=== PATIENT | male | born 1970 | race Hispanic/Latino ===

== ENCOUNTER 2021-03-19 16:53 | Inpatient (IN) | payer SELFPAY ==
--- NOTE | 2021-03-19 18:38 | RAD REPORT ---
EXAM DESCRIPTION: US - Scrotum Testicles - 03/19/2021 6:17 pm CLINICAL HISTORY: Scrotal swelling COMPARISON: None FINDINGS: Right testicle measures 4.2 x 3 x 3 centimeters. . Echotexture is homogeneous. Normal bloo d flow Left testicle measures 3.8 x 3 x 3 centimeters. Echotexture is homogeneous. Normal blood flow Mildly increased blood flow left epididymis Marked scrotal skin thickening IMPRESSION: Marked scrotal skin thickening may indicate cellulitis and should be correlated clinical ly. No abscess seen Mildly increased blood flow left epididymis may indicate mild epididymitis
[2021-03-19 19:26] LABS: Urine Blood Negative (Negative); Urine Glucose Negative (Negative); Urine Protein Negative (Negative); Urine pH 8.5 (5.0-7.0)
[2021-03-19] MEDS ORDERED: ACETAMINOPHEN 325 MG TABLET ONE (19:50)
--- NOTE | 2021-03-19 20:25 | RAD REPORT ---
EXAM DESCRIPTION: USExtrem Venous W Compress Bil03/19/2021 8:06 pm CLINICAL HISTORY: Leg swelling COMPARISON: none FINDINGS: The common femoral, superficial femoral, popliteal and posterior tibial veins bilaterally are compressible and demonstrate augmentation. Doppler demonstrates good flow. IMPRESSION: No evidence of deep venous thrombosis involving either lower extremity.
--- NOTE | 2021-03-19 20:51 | RAD REPORT ---
EXAM DESCRIPTION: Armani Single View03/19/2021 8:04 pm CLINICAL HISTORY: Swelling COMPARISON: none FINDINGS: Upper lobe vessels are prominent indicative of pulmonary venous hypertension. The lungs appear clear of acute infiltrate. The heart is upper limits normal size
[2021-03-19] MEDS ORDERED: CLINDAMYCIN 900MG/D5W 900 MG/50 ML IVPB IV ONE (21:04)
[2021-03-19 21:07] LABS: Hematocrit 24.9 % (39.6-49.0); Lymphocytes % 24.5 % (15.3-44.8); MPV 7.3 fL (7.6-11.3); RBC Red Blood Cell Count 3.47 M/uL (4.33-5.43)
[2021-03-19 21:08] LABS: Protime INR 1.47
[2021-03-19 21:27] LABS: ALT/SGPT 28 U/L (12-78); AST/SGOT 106 U/L (15-37); Albumin 2.4 g/dL (3.4-5.0); Alkaline Phosphatase 318 U/L (45-117); BUN Blood Urea Nitrogen 4 mg/dL (7-18); Bicarbonate 24 mmol/L (21-32); Bilirubin Direct 1.5 mg/dL (0-0.2); Bilirubin Total 2.2 mg/dL (0.2-1.0); Creatine Phosphokinase 114 U/L (39-308); Glucose Level 101 mg/dL (74-106); Magnesium 1.5 mg/dL (1.8-2.4); NT PRO-BNP 189 pg/mL (<125); Potassium 3.4 mmol/L (3.5-5.1); Protein, Total 7.9 g/dL (6.4-8.2); Sodium Level 144 mmol/L (136-145)
[2021-03-19 21:42] LABS: SARS-COV-2 RT PCR NEGATIVE (NEGATIVE)
[2021-03-19 21:51] LABS: Blood Morphology Comment NOTED (NOT SEEN); Hypochromasia 1+; Platelet Estimate DECR; Polychromasia SLIGHT; White Blood Cell Scan OK (OK)
[2021-03-19] MEDS ORDERED: NA CHLORIDE 0.9% 500 ML ONE (22:12)
--- NOTE | 2021-03-20 00:20 | EDPHYS ---
Physician Documentation [facility] Name: Caleb Roberts Age: 50 yrs Sex: Male : 1970 Arrival Date: 03/19/2021 Time: 16:56 Bed 17 Private MD: ED Physician Bennie Brewster HPI: 03/19 19:20 This 50 yrs old Male presents to ER via Ambulatory with complaints of mh7 Testicular Swelling. 19:20 The patient presents with swelling, that is moderate, of the scrotum. Onset: The mh7 symptoms/episode began/occurred 1 week(s) ago. Modifying factors: The symptoms are alleviated by nothing, the symptoms are aggravated by movement. Associated signs and symptoms: Pertinent negatives: abdominal pain, constipation, diarrhea, dysuria, fever, hematuria, nausea, vomiting. Severity of symptoms: At their worst the symptoms were moderate, 4 day(s) ago, in the emergency department the symptoms are unchanged. The patient has not experienced similar symptoms in the past. Historical: - Allergies: 17:05 No Known Allergies; ap3 - Home Meds: 17:05 None [Active]; ap3 - PMHx: 17:05 None; ap3 - Immunization history:: Client reports having NOT received the Covid vaccine. - Social history:: Smoking status: Patient reports the use of cigarette tobacco products, smokes one-half pack cigarettes per day. ROS: 19:20 Constitutional: Negative for fever, chills, and weight loss, Eyes: Negative for injury, mh7 pain, redness, and discharge, ENT: Negative for injury, pain, and discharge, Neck: Negative for injury, pain, and swelling, Cardiovascular: Negative for chest pain, palpitations, and edema, Respiratory: Negative for shortness of breath, cough, wheezing, and pleuritic chest pain, Abdomen/GI: Negative for abdominal pain, nausea, vomiting, diarrhea, and constipation, Back: Negative for injury and pain, MS/Extremity: Negative for injury and deformity, Skin: Negative for injury, rash, and discoloration, Neuro: Negative for headache, weakness, numbness, tingling, and seizure, Psych: Negative for depression, anxiety, suicide ideation, homicidal ideation, and hallucinations, Allergy/Immunology: Negative for hives, rash, and allergies, Endocrine: Negative for neck swelling, polydipsia, polyuria, polyphagia, and marked weight changes, Hematologic/Lymphatic: Negative for swollen nodes, abnormal bleeding, and unusual bruising. Exam: 19:20 Constitutional: This is a well developed, well nourished patient who is awake, alert, mh7 and in no acute distress. Head/Face: Normocephalic, atraumatic. Neck: Trachea midline, no thyromegaly or masses palpated, and no cervical lymphadenopathy. Supple, full range of motion without nuchal rigidity, or vertebral point tenderness. No Meningismus. Chest/axilla: Normal chest wall appearance and motion. Nontender with no deformity. No lesions are appreciated. Respiratory: Lungs have equal breath sounds bilaterally, clear to auscultation and percussion. No rales, rhonchi or wheezes noted. No increased work of breathing, no retractions or nasal flaring. 19:20 Abdomen/GI: Soft, non-tender, with normal bowel sounds. No distension or tympany. No guarding or rebound. No evidence of tenderness throughout. Back: No spinal tenderness. No costovertebral tenderness. Full range of motion. Neuro: Awake and alert, GCS 15, oriented to person, place, time, and situation. Cranial nerves II-XII grossly intact. Motor strength 5/5 in all extremities. Sensory grossly intact. Cerebellar exam normal. Normal gait. Psych: Awake, alert, with orientation to person, place and time. Behavior, mood, and affect are within normal limits. 19:20 Cardiovascular: Rate: tachycardic, Rhythm: regular, Pulses: no pulse deficits are appreciated, Heart sounds: normal, normal S1and S2, Edema: pedal edema, that is marked, JVD: is not appreciated. 19:20 : CVA tenderness, is absent, Male external genitalia: swelling, scrotal, that is mh7 moderate, Bladder: is normal, Rectal exam: is refused by patient or guardian. 19:20 Musculoskeletal/extremity: Extremities: noted in the right leg and left leg: erythema, mh7 swelling, ROM: intact in all extremities, Circulation is intact in all extremities. Sensation intact. Compartment Syndrome exam of affected extremity: is normal. no pain, no numbness, no tingling, no sensation deficit, no palor, no weak pulses, Joints: All joints appear normal with full range of motion. Weight bearing: able to fully bear weight, without difficulty, Tendon exam: specific tendon testing normal through active and passive range of motion DVT Exam: no pain, no tenderness, negative Homans' sign noted on exam, no appreciated bluish discoloration, swelling, that is moderate, of the right leg, of the left leg, erythema, that is moderate, of the right leg, of the left leg, increased warmth, that is mild, of the right leg, of the left leg, Calves: are non-tender, have equal circumference. 19:20 Skin: cellulitis, that is moderate, irregular, on the right leg and left leg. Vital Signs: 17:03 BP 163 / 91; Pulse 108; Resp 16; Temp 100.5; Pulse Ox 100% ; Height 5 ft. 10 in. ap3 (177.80 cm); 19:16 BP 173 / 86; Pulse 106; Resp 19; Pulse Ox 99% ; Pain 0/10; eo2 20:58 BP 168 / 95; Pulse 103; Resp 18; Pulse Ox 100% on R/A; ll3 22:01 BP 157 / 91; Pulse 99; Resp 19; Pulse Ox 100% on R/A; ll3 22:59 BP 150 / 97; Pulse 105; Resp 18; Pulse Ox 100% on R/A; ll3 03/20 00:02 BP 147 / 85; Pulse 106; Resp 17; Pulse Ox 100% on R/A; ll3 MDM: 00:15 Differential diagnosis: urethritis, Cellulitis, anasarca, CHF, pedal edema, DVT, mh7 epididymitis. Data reviewed: vital signs, nurses notes, lab test result(s), cardiac enzymes, CBC, electrolytes, urinalysis, EKG, radiologic studies, CT scan, doppler, plain films, ultrasound. Data interpreted: Pulse oximetry: on room air is 100 %. Interpretation: normal. Counseling: I had a detailed discussion with the patient and/or guardian regarding: the historical points, exam findings, and any diagnostic results supporting the discharge/admit diagnosis, the presence of at least one elevated blood pressure reading (>120/80) during this emergency department visit, lab results, radiology results, the need for further work-up and treatment in the hospital. Response to treatment: the patient's symptoms have mildly improved after treatment. 00:19 Patient medically screened. mh7 03/19 17:06 Order name: Urine Culture [facility] 03/19 19:18 Order name: Basic Metabolic Panel; Complete Time: 21:29 [facility] 03/19 19:18 Order name: CBC with Diff; Complete Time: 21:59 [facility] 03/19 19:18 Order name: LFT's; Complete Time: 21:29 [facility] 03/19 19:18 Order name: Magnesium; Complete Time: 21:29 [facility] 03/19 19:18 Order name: NT PRO-BNP; Complete Time: 21:29 [facility] 03/19 19:18 Order name: PT-INR; Complete Time: 21:29 [facility] 03/19 19:18 Order name: Troponin HS; Complete Time: 21:29 [facility] 03/19 19:18 Order name: Lactate; Complete Time: 21:42 [facility] 03/19 19:18 Order name: Procalcitonin; Complete Time: 21:42 [facility] 03/19 19:18 Order name: COVID-19/FLU A+B (Document "Date of Onset" if Symptomatic); Complete Time: [facility] 21:59 03/19 19:18 Order name: Blood Culture Adult (2) [facility] 03/19 19:19 Order name: CPK; Complete Time: 21:29 [facility] 03/19 19:25 Order name: Urine Dipstick-Ancillary; Complete Time: 19:36 [facility] 03/19 19:36 Order name: Urine Microscopic Only [facility] 03/19 21:51 Order name: CBC Smear Scan; Complete Time: 21:59 [facility] 03/20 02:15 Order name: Lactate Sepsis 2 HR Follow-up [facility] 03/20 04:23 Order name: Gram Stain [facility] 03/20 06:03 Order name: Ammonia [facility] 03/20 06:07 Order name: Lactate [facility] 03/20 06:08 Order name: Alcohol Serum/Plasma [facility] 03/20 06:10 Order name: CBC with Automated Diff [facility] 03/20 06:11 Order name: Iron [facility] 03/20 06:11 Order name: Transferrin Sat/Iron Binding [facility] 03/20 06:16 Order name: Comprehensive Metabolic Panel [facility] 03/20 06:16 Order name: Phosphorus [facility] 03/20 06:16 Order name: Magnesium [facility] 03/20 10:43 Order name: CBC Smear Scan [facility] 03/20 14:42 Order name: ABO/RH typing [facility] 03/20 14:42 Order name: Antibody Screen [facility] 03/19 17:06 Order name: Urine Dipstick-Ancillary (obtain specimen); Complete Time: 19:26 [facility] 03/19 17:06 Order name: US Scrotum Testicles; Complete Time: 19:07 [facility] 03/19 19:18 Order name: XRAY Chest (1 view); Complete Time: 21:07 [facility] 03/19 19:18 Order name: EKG; Complete Time: 19:19 [facility] 03/19 19:18 Order name: Cardiac monitoring; Complete Time: 20:27 [facility] 03/19 19:18 Order name: EKG - Nurse/Tech; Complete Time: 20:27 [facility] 03/19 19:18 Order name: IV Saline Lock; Complete Time: 20:57 [facility] 03/19 19:18 Order name: Labs collected and sent; Complete Time: 20:57 [facility] 03/19 19:18 Order name: O2 Per Protocol; Complete Time: 20:27 [facility] 03/19 19:18 Order name: O2 Sat Monitoring; Complete Time: 20:27 [facility] 03/19 19:19 Order name: US Extremity Venous W Compression Calderon; Complete Time: 20:40 [facility] 03/19 22:00 Order name: CT Abd/Pelvis - IV Contrast Only [facility] 03/20 00:28 Order name: CONS Physician Consult [facility] 03/20 14:46 Order name: ABO/RH no charge [facility] Administered Medications: 03/19 20:27 Drug: Tylenol 650 mg Route: PO; ll3 20:57 Follow up: Response: No adverse reaction ll3 21:26 Drug: Clindamycin 900 mg Route: IVPB; Infused Over: 30 mins; Site: right antecubital; ll3 22:00 Follow up: Response: No adverse reaction; IV Status: Completed infusion; IV Intake: [id number] 22:18 Drug: NS 0.9% 500 ml Route: IV; Rate: bolus; Site: right antecubital; ll3 23:03 Follow up: Response: No adverse reaction; IV Status: Completed infusion; IV Intake: ll3 500ml Disposition Summary: 03/20/21 00:19 Hospitalization Ordered Hospitalization Status: Inpatient Admission [facility] Provider: Advis, Mohammad mh7 Condition: Stable mh7 Problem: new mh7 Symptoms: have improved mh7 Bed/Room Type: Standard [facility] Location: Telemetry/MedSurg (Inpatient)(03/20/21 21:08) mw Room Assignment: 218(03/20/21 21:08) mw Diagnosis - Cellulitis, bilateral lower extremities mh7 - Anasarca mh7 - Liver cirrhosis mh7 Forms: - Medication Reconciliation Form mh7 - SBAR form mh7 Signatures: Dispatcher [employer] EDNidia Moise RN RN mw Rittger, Kevin, MD MD [facility] Yoko Couch RN RN ap3 Bennie Brewster MD MD 7 Danay Mai RN RN ll3 Corrections: (The following items were deleted from the chart) 03/20 00:36 00:19 Telemetry/MedSurg (Inpatient) mh7 mw 00:36 00:19 mh7 mw 21:08 00:36 [facility] ER HOLD mw mw 21:08 00:36 ERHOLD- mw mw
--- NOTE | 2021-03-20 00:20 | ER ---
Nurse's Notes [facility] Name: Caleb Roberts Age: 50 yrs Sex: Male : 1970 Arrival Date: 03/19/2021 Time: 16:56 Bed 17 Private MD: Diagnosis: Cellulitis, bilateral lower extremities;Anasarca;Liver cirrhosis Presentation: 03/19 17:03 Chief complaint: Patient states: he has had increasing testicular swelling for the past ap3 week. Patient states it is uncomfortable to stand for a long period of time. Coronavirus screen: At this time, the client does not indicate any symptoms associated with coronavirus-19. Ebola Screen: No symptoms or risks identified at this time. Initial Sepsis Screen: Does the patient meet any 2 criteria? HR > 90 bpm. No. Patient's initial sepsis screen is negative. Does the patient have a suspected source of infection? No. Patient's initial sepsis screen is negative. Risk Assessment: Do you want to hurt yourself or someone else? Patient reports no desire to harm self or others. Onset of symptoms was March 12, 2021. 17:03 Method Of Arrival: Ambulatory ap3 17:03 Acuity: [place] 2 ap3 Triage Assessment: 17:06 General: Appears uncomfortable, Behavior is cooperative. Pain: Complains of pain in ap3 scrotum Pain began one week ago. Neuro: Level of Consciousness is awake, alert, obeys commands. Respiratory: Airway is patent. : Swelling noted on scrotum. Historical: - Allergies: 17:05 No Known Allergies; ap3 - Home Meds: 17:05 None [Active]; ap3 - PMHx: 17:05 None; ap3 - Immunization history:: Client reports having NOT received the Covid vaccine. - Social history:: Smoking status: Patient reports the use of cigarette tobacco products, smokes one-half pack cigarettes per day. Screenin:06 Abuse screen: Denies threats or abuse. Nutritional screening: No deficits noted. ap3 Tuberculosis screening: No symptoms or risk factors identified. 19:32 Fall Risk None identified. eo2 Assessment: 19:05 General: Appears in no apparent distress. Behavior is calm, cooperative. Pain: Denies eo2 pain. Neuro: Level of Consciousness is awake, alert, obeys commands, Oriented to person, place, time, situation, Denies dizziness, headache. Cardiovascular: Denies chest pain, shortness of breath, Heart tones S1 S2 Patient's skin is warm and dry. Edema is 3+ to b/l LE. Respiratory: Airway is patent Trachea midline Respiratory effort is even, unlabored, Respiratory pattern is regular, symmetrical, Breath sounds are clear bilaterally. Denies shortness of breath. GI: No deficits noted. No signs and/or symptoms were reported involving the gastrointestinal system. Patient currently denies nausea, vomiting. : Reports Scrotal swelling for 1 week, denies penile discharge, denies penile pain. Derm: Skin is red, b/l LE redness Skin temperature is warm. Musculoskeletal: Range of motion: intact in all extremities, Swelling present in b/l LE. 19:26 Reassessment: pt ANKUR to ultrasound at this time, labs to be drawn upon return. eo2 20:58 Reassessment: Patient appears in no apparent distress at this time. No changes from ll3 previously documented assessment. Patient and/or family updated on plan of care and expected duration. Pain level reassessed. Patient is alert, oriented x 3, equal unlabored respirations, skin warm/dry/pink. 22:01 Reassessment: Patient appears in no apparent distress at this time. No changes from ll3 previously documented assessment. Patient and/or family updated on plan of care and expected duration. Pain level reassessed. Patient is alert, oriented x 3, equal unlabored respirations, skin warm/dry/pink. 22:59 Reassessment: Patient appears in no apparent distress at this time. No changes from ll3 previously documented assessment. Patient and/or family updated on plan of care and expected duration. Pain level reassessed. Patient is alert, oriented x 3, equal unlabored respirations, skin warm/dry/pink. 03/20 00:02 Reassessment: Patient appears in no apparent distress at this time. No changes from ll3 previously documented assessment. Patient and/or family updated on plan of care and expected duration. Pain level reassessed. 04:26 General: The lab called to say that one of the blood cultures was + for gram + coccyx, manisha in pairs and WBC. Vital Signs: 03/19 17:03 BP 163 / 91; Pulse 108; Resp 16; Temp 100.5; Pulse Ox 100% ; Height 5 ft. 10 in. ap3 (177.80 cm); 19:16 BP 173 / 86; Pulse 106; Resp 19; Pulse Ox 99% ; Pain 0/10; eo2 20:58 BP 168 / 95; Pulse 103; Resp 18; Pulse Ox 100% on R/A; ll3 22:01 BP 157 / 91; Pulse 99; Resp 19; Pulse Ox 100% on R/A; ll3 22:59 BP 150 / 97; Pulse 105; Resp 18; Pulse Ox 100% on R/A; ll3 03/20 00:02 BP 147 / 85; Pulse 106; Resp 17; Pulse Ox 100% on R/A; ll3 ED Course: 03/19 16:56 Patient arrived in ED. ds1 17:05 Albert Johnson MD is Attending Physician. kdr 17:05 Triage completed. ap3 17:07 Arm band placed on left wrist. ap3 18:17 US Scrotum Testicles In Process Unspecified. EDMS 19:06 Attending Physician role handed off by Albert Johnson MD 7 19:06 Bennie Brewster MD is Attending Physician. mh7 19:25 Urine Culture Sent. eo2 19:32 Patient has correct armband on for positive identification. eo2 19:32 Pulse ox on. NIBP on. eo2 19:32 Report given to Ginette LÓPEZ. eo2 19:32 No provider procedures requiring assistance completed. eo2 20:04 XRAY Chest (1 view) In Process Unspecified. EDMS 20:06 US Extremity Venous W Compression Calderon In Process Unspecified. EDMS 21:26 Danay Mai RN is Primary Nurse. 3 23:20 CT Abd/Pelvis - IV Contrast Only In Process Unspecified. EDMS 03/20 00:17 Paulina Davis MD is Hospitalizing Provider. 7 08:31 Primary Nurse role handed off by Danay Mai RN eb 21:50 'report given to MARIBEL DAVIDSON ; all questions and concerns addressed. the patient is st1 assigned to room 218. 21:51 Patient transferred, IV remains in place. st1 Administered Medications: 03/19 20:27 Drug: Tylenol 650 mg Route: PO; ll3 20:57 Follow up: Response: No adverse reaction 3 21:26 Drug: Clindamycin 900 mg Route: IVPB; Infused Over: 30 mins; Site: right antecubital; ll3 22:00 Follow up: Response: No adverse reaction; IV Status: Completed infusion; IV Intake: [id number] 22:18 Drug: NS 0.9% 500 ml Route: IV; Rate: bolus; Site: right antecubital; ll3 23:03 Follow up: Response: No adverse reaction; IV Status: Completed infusion; IV Intake: ll3 500ml Intake: 22:00 IV: 50ml; Total: 50ml. ll3 23:03 IV: 500ml; Total: 550ml. ll3 Outcome: 03/20 00:19 Decision to Hospitalize by Provider. [facility] 21:50 Admitted to Med/surg accompanied by nurse, via wheelchair, room 218, with chart, Report st1 called to MARIBEL Davidson 21:50 Condition: stable 21:50 Instructed on the need for admit. 22:02 Patient left the ED. st1 Signatures: Dispatcher [employer] EDMS Albert Johnson MD MD [facility] Brenda Fournier ds1 Yoko Couch RN RN ap3 Merissa Madrid Maurice, MD MD [facility] Danay Mai RN RN ll3 Tg Green RN Shira Bañuelos RN RN eo2 Kellen Schaefer RN RN st1
--- NOTE | 2021-03-20 03:21 | P.HP ---
Certification for Inpatient Patient admitted to: Inpatient With expected LOS: >2 Midnights Patient will require the following post-hospital care: None Practitioner: I am a practitioner with admitting privileges, knowledge of patient current condition, hospital course, and medical plan of care. Services: Services provided to patient in accordance with Admission requirements found in Title 42 Section 412.3 of the Code of Federal Regulations Patient History Date of Service: 03/20/21 Reason for admission: anasarca, liver cirrhosis History of Present Illness: Mr. Roberts is a 50 yo M with no known past medical history who presents with one week of scrotal swelling. ER physician notified the patient that his legs are also quite swollen, and he says that they have been increasing in size since December. His legs are erythematous and also warm to the touch. Patient is visibly jaundiced. He reports decreased appetite. Denies fever, nausea, vomiting, abdominal pain, shortness of breath, hematemesis, hematochezia and melena. He says he drinks half a bottle of tequila weekly. He smokes 5-6 cigarettes daily. He denies IV drug use and previous diagnosis of hepatitis. Hemoglobin 7.1 MCV 71.8 Plt 143 K 3.4 Lactate 2.9 MG 1.5 Tbili 2.2 Dbili 1.5 AST 106 alk phos 318 BNP 189 albumin 2.4 procal 0.13 CTAP shows cirrhotic liver and splenomegaly with trace ascites & body wall edema specfically of the lower abdomen and pelvis extending into the scrotum Scrotal US IMPRESSION: Marked scrotal skin thickening may indicate cellulitis and should be correlated clinically. No abscess seen Mildly increased blood flow left epididymis may indicate mild epididymitis CXR FINDINGS: Upper lobe vessels are prominent indicative of pulmonary venous hypertension. The lungs appear clear of acute infiltrate. The heart is upper limits normal size Venous Doppler US IMPRESSION: No evidence of deep venous thrombosis involving either lower extremity. - Past Medical/Surgical History Past Medical History: Patient denies medical history Past Surgical History: Patient denies surgical history - Social History Smoking Status: Current every day smoker Alcohol use: Yes CD- Drugs: No Caffeine use: Yes Place of Residence: Home Review of Systems General: Unremarkable Eyes: Unremarkable ENT: Unremarkable Respiratory: Unremarkable Cardiovascular: Edema Gastrointestinal: Unremarkable Genitourinary: Unremarkable Musculoskeletal: Unremarkable Integumentary: Unremarkable Neurological: Unremarkable Lymphatics: Unremarkable Physical Examination - Physical Exam General: Alert, In no apparent distress, Oriented x3, Cooperative HEENT: Atraumatic, PERRLA, Mucous membr. moist/pink, EOMI, Scleral icterus Neck: Supple, 2+ carotid pulse no bruit, No LAD Respiratory: Clear to auscultation bilaterally, Normal air movement Cardiovascular: Normal pulses, Regular rate/rhythm, Normal S1 S2, Edema (3+ pitting edema bilaterally, large scrotal edema ) Capillary refill: <2 Seconds Gastrointestinal: Normal bowel sounds, No tenderness, Ascites Musculoskeletal: No tenderness Integumentary: Erythema, Warmth Neurological: Normal speech, Normal strength at 5/5 x4 extr, Normal tone, Normal affect Lymphatics: No axilla or inguinal lymphadenopathy - Studies Laboratory Data (last 24 hrs) 03/19/21 20:40: PT 17.0 H, INR 1.47 03/19/21 20:40: WBC 4.20 L, Hgb 7.1 L, Hct 24.9 L, Plt Count 143 L 03/19/21 20:40: Sodium 144, Potassium 3.4 L, BUN 4 L, Creatinine 0.58, Glucose 101, Magnesium 1.5 L, Total Bilirubin 2.2 H, AST 106 H, ALT 28, Alkaline Phosphatase 318 H Assessment and Plan - Problems (Diagnosis) (1) Alcoholic cirrhosis of liver Current Visit: Yes Status: Acute Qualifiers: Ascites presence: with ascites Qualified Code(s): K70.31 - Alcoholic cirrhosis of liver with ascites (2) Cellulitis Current Visit: Yes Status: Acute Qualifiers: Site of cellulitis: extremity Site of cellulitis of extremity: lower extremity Laterality: unspecified laterality Qualified Code(s): L03.119 - Cellulitis of unspecified part of limb (3) Anemia Current Visit: Yes Status: Chronic Qualifiers: Anemia type: iron deficiency Iron deficiency anemia type: unspecified iron deficiency Qualified Code(s): D50.9 - Iron deficiency anemia, unspecified (4) Thrombocytopenia Current Visit: Yes Status: Chronic (5) Hypomagnesemia Current Visit: Yes Status: Acute (6) Scrotal edema Current Visit: Yes Status: Acute - Plan GI consulted continue IV lasix and spironolactone, fluid restrict, low sodium diet continue IV ciprofloxacin anemia workup pending ammonia level pending, serum alcohol and UDS pending CIWA protocol hepatitis panel pending, AFP level pending ECHO pending potassium and magnesium replacement SCDs Discharge Plan: Home Plan to discharge in: 72 Hours - Advance Directives Does patient have a Living Will: No Does patient have a Durable POA for Healthcare: No - Code Status/Comfort Care Code Status Assessed: Yes (full code ) Critical Care: No Time Spent Managing Pts Care (In Minutes): 70
[2021-03-20] MEDS: SPIRONOLACTONE 100 MG TAB PO SCH ×2 (03:58→09:00)
[2021-03-20] MEDS ORDERED: ONDANSETRON 4 MG/2 ML VIAL IV PRN (03:58)
[2021-03-20] MEDS ORDERED: ACETAMINOPHEN 500 MG TAB PO PRN (03:58)
[2021-03-20] MEDS ORDERED: Magnesium Sulfate 2gm IVPB 2 G/50 ML BAG IV ONE ×2 (03:58→04:16)
[2021-03-20] MEDS ORDERED: SPIRONOLACTONE 25 MG TABLET ONE (04:19)
[2021-03-20 06:00] LABS: Absolute Lymphocytes (CBC) 0.8 K/uL (0.7-4.9); Hematocrit 22.3 % (39.6-49.0); Lymphocytes % 18.7 % (15.3-44.8); MPV 7.1 fL (7.6-11.3); RBC Red Blood Cell Count 3.12 M/uL (4.33-5.43)
[2021-03-20 06:10] LABS: Ferritin 11.4 ng/mL (26-388)
[2021-03-20 06:13] LABS: ALT/SGPT 24 U/L (12-78); AST/SGOT 78 U/L (15-37); Albumin 2.2 g/dL (3.4-5.0); Alkaline Phosphatase 286 U/L (45-117); BUN Blood Urea Nitrogen 4 mg/dL (7-18); Bicarbonate 23 mmol/L (21-32); Bilirubin Total 3.2 mg/dL (0.2-1.0); Glucose Level 105 mg/dL (74-106); Magnesium 2.1 mg/dL (1.8-2.4); Phosphorus 2.6 mg/dL (2.5-4.9); Potassium 3.2 mmol/L (3.5-5.1); Protein, Total 7.2 g/dL (6.4-8.2); Sodium Level 144 mmol/L (136-145)
[2021-03-20 06:20] VITALS: BMI 27.2
[2021-03-20] MEDS ORDERED: POTASSIUM CL SA 10 MEQ TAB PO ONE (08:48)
[2021-03-20] MEDS ORDERED: CIPROFLOXACIN 400mg IV 400 MG/200 ML BAG IV ONE (08:48)
[2021-03-20] MEDS ORDERED: FUROSEMIDE 40 MG/4 ML VIAL ONE ×2 (08:48→21:58)
[2021-03-20] MEDS ORDERED: FUROSEMIDE 40 MG/4 ML VIAL IV SCH (09:00)
[2021-03-20 10:41] LABS: Anisocytosis 1+; Blood Morphology Comment NOTED (NOT SEEN); Hypochromasia 1+; Platelet Estimate DECR; Polychromasia 1+; White Blood Cell Scan OK (OK)
[2021-03-20 10:42] LABS: Rouleau NOTED
[2021-03-20] MEDS: CIPROFLOXACIN 400mg IV 400 MG/200 ML BAG IV SCH ×2 (13:00→22:40)
--- NOTE | 2021-03-20 13:10 | P.PN ---
Date of Service: 03/20/21 Patient seen and examined. He has no complaint except a swollen scrotum. He is diuresing well with IV Lasix. Alert and oriented. Diagnosis: Alcohol liver cirrhosis Anasarca. Anemia Hypoalbuminemia Lower extremity edema with venous stasis dermatitis. I doubt cellulitis. plan: Transfuse 1 unit PRBC Continue IV Lasix Aldactone CIWA. Monitor and optimize electrolytes.
[2021-03-20] MEDS ORDERED: NA CHLORIDE 0.9% 250 ML IV SCH (14:00)
[2021-03-20] MEDS: FUROSEMIDE 40 MG/4 ML VIAL IV SCH ×2 (21:00→22:39)
--- NOTE | 2021-03-20 21:58 | RAD REPORT ---
EXAM DESCRIPTION: CT - Abdomen Pelvis W Contrast - 03/20/2021 6:24 am CLINICAL HISTORY: The patient is 50 years old and is Male; SWELLING TECHNIQUE: Axial computed tomography images of the abdomen and pelvis with intravenous contrast. S agittal and coronal reformatted images were created and reviewed. This CT exam was performed using one or more of the following dose reduction techniques: automated exposure control, adjustment of t he mA and/or kV according to patient size, and/or use of iterative reconstruction technique. COMPARISON: No relevant prior studies available. FINDINGS: LUNG BASES: Asymmetric groundglass opacity within the left lower lobe is present. ABDOMEN: LIVER: The liver is diffusely fatty. A nodular contour to the liver is noted. GALLBLADDER AND BILE DUCTS: Gallbladder is contracted. PANCREAS: No ductal dilation. No mass. SPLEEN: The spleen is enlarged. ADRENALS: Unremarkable. No mass. KIDNEYS AND URETERS: Unremarkable. The kidneys enhance symmetrically. No obstructing renal or ure teral calculus is seen. No hydronephrosis or hydroureter. No perinephric fluid or stranding. STOMACH AND BOWEL: The stomach is fluid-filled. The majority the small bowel is fluid-filled. Sto ol is present throughout colon. There is no bowel obstruction. PELVIS: APPENDIX: The appendix is normal in caliber without surrounding inflammation. BLADDER: Unremarkable. No mass. REPRODUCTIVE: Unremarkable as visualized. ABDOMEN and PELVIS: INTRAPERITONEAL SPACE: Minimal ascites is present within the bilateral upper quadrants, right gre ater than left. No free air. BONES/JOINTS: No acute fracture. SOFT TISSUES: Mild diffuse edema of the soft tissues of the lower abdomen and pelvis extending in to the scrotal wall is noted. VASCULATURE: Unremarkable. No abdominal aortic aneurysm. LYMPH NODES: Few prominent bilateral inguinal chain lymph nodes are present. IMPRESSION: 1. Cirrhotic liver and splenomegaly with trace ascites. 2. Body wall edema specifically of the lower abdomen and pelvis extending into the scrotum. Electronically signed by: Denise Kapadia MD 03/19/2021 11:37 PM [employer] Due to temporary technical issues with the PACS/Fluency reporting system, reports are being signed by the in house radiologists without review as a courtesy to insure prompt reporting. The interpreting radiologist is fully responsible for the content of the report.
[2021-03-20] MEDS ORDERED: HYDRALAZINE HCL 20 MG/ML VIAL IV PRN (23:01)
[2021-03-21 04:41] LABS: Absolute Lymphocytes (CBC) 1.2 K/uL (0.7-4.9); Lymphocytes % 24.5 % (15.3-44.8); MPV 7.4 fL (7.6-11.3); RBC Red Blood Cell Count 2.82 M/uL (4.33-5.43)
[2021-03-21 04:57] LABS: ALT/SGPT 20 U/L (12-78); AST/SGOT 44 U/L (15-37); Alkaline Phosphatase 230 U/L (45-117); BUN Blood Urea Nitrogen 5 mg/dL (7-18); Bicarbonate 25 mmol/L (21-32); Bilirubin Total 2.7 mg/dL (0.2-1.0); Glucose Level 106 mg/dL (74-106); HDL Cholesterol 22 mg/dL (40-60); LDL Cholesterol, Calculated 36 (<130); Magnesium 1.6 mg/dL (1.8-2.4); Phosphorus 1.8 mg/dL (2.5-4.9); Potassium 3.1 mmol/L (3.5-5.1); Protein, Total 6.6 g/dL (6.4-8.2); Sodium Level 140 mmol/L (136-145)
[2021-03-21] MEDS ORDERED: MAGNESIUM SULFATE 1 gm IVPB 1 GM/100 ML BAG IV ONE ×2 (06:56→15:02)
[2021-03-21] MEDS ORDERED: POTASSIUM CL SA 10 MEQ TAB PO ONE (08:00)
[2021-03-21] MEDS: CIPROFLOXACIN 400mg IV 400 MG/200 ML BAG IV SCH ×2 (08:25→20:14)
[2021-03-21] MEDS: SPIRONOLACTONE 100 MG TAB PO SCH (08:27)
[2021-03-21] MEDS: FUROSEMIDE 40 MG/4 ML VIAL IV SCH ×2 (08:28→20:14)
[2021-03-21 11:48] LABS: Hematocrit 23.7 % (39.6-49.0)
--- NOTE | 2021-03-21 12:19 | P.PN ---
Subjective Date of Service: 03/21/21 Chief Complaint: anasarca, liver cirrhosis Patient has no complaint. His only concern is a swollen scrotum. He denies any melena or vomiting or hematemesis. Physical Examination - Vital Signs Temperature: 99.4 F Blood Pressure: 136/68 Pulse: 97 Respirations: 17 Pulse Ox (%): 100 - Physical Exam General: Alert, In no apparent distress, Oriented x3 HEENT: Mucous membr. moist/pink Neck: JVD not distended Respiratory: Clear to auscultation bilaterally, Normal air movement Cardiovascular: Regular rate/rhythm, Normal S1 S2, Edema (Lower extremity edema improved.) Gastrointestinal: Soft and benign, Non-distended, No tenderness Musculoskeletal: No warmth, Erythema (Mild erythema-bilateral legs.) Integumentary: No breakdown, No cyanosis Neurological: Normal strength at 5/5 x4 extr, Cranial nerves 3-12 intact - Studies Microbiology Data (last 24 hrs): 03/19/21 19:23 Clean Catch Urine [place] Count - Final <10,000 CFU/ML. 03/19/21 19:23 Clean Catch Urine - Final MIXED MARY BETH. 03/19/21 23:01 Blood - Blood Gram Stain - Final Assessment And Plan - Current Problems (Diagnosis) (1) Anasarca Current Visit: Yes Status: Acute (2) Alcoholic cirrhosis of liver Current Visit: Yes Status: Acute Qualifiers: Ascites presence: with ascites Qualified Code(s): K70.31 - Alcoholic cirrhosis of liver with ascites (3) Scrotal edema Current Visit: Yes Status: Acute (4) Thrombocytopenia Current Visit: Yes Status: Chronic - Plan Diagnosis: Alcohol liver cirrhosis Anasarca. Anemia Hypoalbuminemia Lower extremity edema with venous stasis dermatitis. I doubt cellulitis. plan: Transfuse 1 unit PRBC. Follow-up posttransfusion hemoglobin. Transfuse as needed for hemoglobin less than 7 Continue IV Lasix and Aldactone No evidence of alcohol withdrawal. Monitor intake and output. Monitor for active bleeding. Monitor and optimize electrolytes.
[2021-03-21] MEDS ORDERED: INFLUENZA VACCINE (for 6+ mo) 0.5 ML DOSE IMVAC ONE (14:00)
[2021-03-21 14:59] LABS: Magnesium 1.6 mg/dL (1.8-2.4); Potassium 3.3 mmol/L (3.5-5.1)
[2021-03-21] MEDS: POTASSIUM CL SA 10 MEQ TAB PO SCH ×2 (15:29→20:15)
[2021-03-22 06:04] LABS: Absolute Lymphocytes (CBC) 1.6 K/uL (0.7-4.9); Lymphocytes % 28.3 % (15.3-44.8); MPV 8.2 fL (7.6-11.3); RBC Red Blood Cell Count 3.17 M/uL (4.33-5.43)
[2021-03-22 07:32] LABS: BUN Blood Urea Nitrogen 5 mg/dL (7-18); Bicarbonate 24 mmol/L (21-32); Glucose Level 111 mg/dL (74-106); Phosphorus 2.2 mg/dL (2.5-4.9); Potassium 3.8 mmol/L (3.5-5.1); Sodium Level 139 mmol/L (136-145)
[2021-03-22] MEDS ORDERED: POTASSIUM PHOS IN 0.9 % NACL 15 MMOL/250 ML BAG IV ONE (09:00)
[2021-03-22 09:43] LABS: Platelet Estimate DECR; White Blood Cell Scan OK (OK)
[2021-03-22 09:44] LABS: Anisocytosis 1+; Blood Morphology Comment NOTED (NOT SEEN); Hypochromasia 1+
[2021-03-22 09:45] LABS: Platelets, Giant PRESENT; Polychromasia SLIGHT
[2021-03-22] MEDS: CIPROFLOXACIN 400mg IV 400 MG/200 ML BAG IV SCH ×2 (10:10→20:24)
[2021-03-22] MEDS: SPIRONOLACTONE 100 MG TAB PO SCH (10:10)
[2021-03-22] MEDS ORDERED: Ringers Lactate 1,000 ML IV ONE (10:39)
[2021-03-22] MEDS ORDERED: propofoL 200 MG/20 ML VIAL IV ONE ×2 (11:19→11:45)
[2021-03-22] MEDS ORDERED: LIDOCAINE 1% MPF 5 ML VIAL ONE (11:19)
[2021-03-22] MEDS ORDERED: LIDOCAINE 1% MPF 30 ML VIAL ONE (11:45)
--- NOTE | 2021-03-22 12:13 | ENDO RPT ---
[address], [address] EGD PROCEDURE REPORT EXAM DATE: 03/22/2021 PATIENT NAME: Caleb Roberts MR#: [id number] BIRTHDATE: 1970 ATTENDING: Denilson Sarabia Dr STATUS: inpatient - 7 PAINT PREPPER: Nayely Ordoñez RN and Claudette Moreno CST INDICATIONS: The patient is a 50 yr old Male here for an EGD due to screening for esophageal varices in patient with new diagnosis of cirrhosis PROCEDURE PERFORMED: EGD with biopsy and EGD with banding MEDICATIONS: Per Anesthesia. TOPICAL ANESTHETIC: none CONSENT: The patient understands the risks and benefits of the procedure and understands that these risks include, but are not limited to: sedation, allergic reaction, infection, perforation and/or bleeding. Alternative means of evaluation and treatment include, among others: physical exam, x-rays, and/or surgical intervention. The patient elects to proceed with this endoscopic procedure. DESCRIPTION OF PROCEDURE: During intra-op preparation period all mechanical medical equipment was checked for proper function. Hand hygiene and appropriate measures for infection prevention was taken. Procedure, possible complications, and alternatives including but not limited to the possibility of bleeding, perforation, tear, infection, sepsis, need for surgery, need for blood transfusion, and anesthesia related complications were explained to the patient. After the risks, benefits and alternatives of the procedure were thoroughly explained, Informed consent was verified, confirmed and timeout was successfully executed by the treatment team. The patient was placed in the left lateral position. The patient was anesthetized with topical anesthesia. Through the anesthetized oropharyngeal area, the scope was passed without any difficulty. The EC-3890Li ([id number]) and [id number] ([id number]) endoscope was introduced through the mouth and advanced to the second portion of the duodenum. Retroflexion was not performed. The gastroscope was then slowly withdrawn and removed. Banding X2 were performed. Portal hypertensive gastropathy was found in the body of the stomach. Mild gastritis was found in the antrum. Multiple biopsies were obtained and sent to pathology. Multiple (7) 2-7 mm clean-based ulcers were found in the antrum. Duodenitis was found in the bulb and descending duodenum. Multiple (10) 2-9 mm clean-based ulcers were found in the bulb and descending duodenum. ADVERSE EVENTS: There were no complications. esophagus, s/p banding X2 2. Portal hypertensive gastropathy in the body of the stomach 3. Mild gastritis in the antrum, s/p biopsies 4. Multiple (7) 2-7 mm clean-based ulcers in the antrum 5. Duodenitis in the bulb and descending duodenum 6. Multiple (10) 2-9 mm clean-based ulcers in the bulb and descending duodenum RECOMMENDATIONS: 1. await biopsy results 2. acid suppression therapy 3. Propanolol, with goal SBP <=110 REPEAT EXAM: Return in 3 week(s) Denilson Sarabia Dr eSigned: Denilson Sarabia Dr 03/22/2021 12:12 PM cc: CPT CODES: ICD9 CODES: PATIENT NAME: Caleb Roberts MR#: [id number]
--- NOTE | 2021-03-22 12:14 | P.PN ---
Subjective Date of Service: 03/22/21 Chief Complaint: anasarca, liver cirrhosis Patient has no complaint. His scrotal edema has significantly improved. Physical Examination - Vital Signs Temperature: 98.4 F Blood Pressure: 105/64 Pulse: 86 Respirations: 17 Pulse Ox (%): 100 - Studies Microbiology Data (last 24 hrs): 03/19/21 19:23 Clean Catch Urine [place] Count - Final <10,000 CFU/ML. 03/19/21 19:23 Clean Catch Urine - Final MIXED MARY BETH. Assessment And Plan - Current Problems (Diagnosis) (1) Anasarca Current Visit: Yes Status: Acute (2) Alcoholic cirrhosis of liver Current Visit: Yes Status: Acute Qualifiers: Ascites presence: with ascites Qualified Code(s): K70.31 - Alcoholic cirrhosis of liver with ascites (3) Scrotal edema Current Visit: Yes Status: Acute (4) Thrombocytopenia Current Visit: Yes Status: Chronic - Plan Diagnosis: Alcohol liver cirrhosis Anasarca. Anemia Hypoalbuminemia Lower extremity edema with venous stasis dermatitis. I doubt cellulitis. plan: Transfuse 1 unit PRBC. Follow-up posttransfusion hemoglobin. Transfuse as needed for hemoglobin less than 7. Patient to receive 1 more unit PRBC transfusion today. Seen by GI-Dr. Sarabia and patient planned for EGD today. Scrotal edema has responded well to Lasix and Aldactone and is almost resolved. Continue IV Lasix and Aldactone No evidence of alcohol withdrawal. Monitor intake and output. Monitor for active bleeding. Monitor and optimize electrolytes.
--- NOTE | 2021-03-22 12:19 | ENDO RPT ---
[address], [address] EGD PROCEDURE REPORT EXAM DATE: 03/22/2021 PATIENT NAME: Caleb Roberts MR#: [id number] BIRTHDATE: 1970 ATTENDING: Denilson Sarabia Dr STATUS: inpatient - 7 HOME CARE ATTENDANT: Nayely Ordoñez RN and Claudette Moreno CST INDICATIONS: The patient is a 50 yr old Male here for an EGD due to screening for esophageal varices in patient with new diagnosis of cirrhosis PROCEDURE PERFORMED: EGD with biopsy and EGD with banding MEDICATIONS: Per Anesthesia. TOPICAL ANESTHETIC: none CONSENT: The patient understands the risks and benefits of the procedure and understands that these risks include, but are not limited to: sedation, allergic reaction, infection, perforation and/or bleeding. Alternative means of evaluation and treatment include, among others: physical exam, x-rays, and/or surgical intervention. The patient elects to proceed with this endoscopic procedure. DESCRIPTION OF PROCEDURE: During intra-op preparation period all mechanical medical equipment was checked for proper function. Hand hygiene and appropriate measures for infection prevention was taken. Procedure, possible complications, and alternatives including but not limited to the possibility of bleeding, perforation, tear, infection, sepsis, need for surgery, need for blood transfusion, and anesthesia related complications were explained to the patient. After the risks, benefits and alternatives of the procedure were thoroughly explained, Informed consent was verified, confirmed and timeout was successfully executed by the treatment team. The patient was placed in the left lateral position. The patient was anesthetized with topical anesthesia. Through the anesthetized oropharyngeal area, the scope was passed without any difficulty. The EC-3890Li ([id number]) and EG-[id number] ([id number]) endoscope was introduced through the mouth and advanced to the second portion of the duodenum. Retroflexion was not performed. The gastroscope was then slowly withdrawn and removed. LA class C esophagitis in the distal esophagus. 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 Banding X2 were performed. Portal hypertensive gastropathy was found in the body of the stomach. Mild gastritis was found in the antrum. Multiple biopsies were obtained and sent to pathology. Multiple (7) 2-7 mm clean-based ulcers were found in the antrum. Duodenitis was found in the bulb and descending duodenum. Multiple (10) 2-9 mm clean-based ulcers were found in the bulb and descending duodenum. ADVERSE EVENTS: There were no complications. IMPRESSIONS: 1. LA class C esophagitis in the distal esophagus 2. 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 Portal hypertensive gastropathy in the body of the stomach 5. Mild gastritis in the antrum, s/p biopsies 6. Multiple (7) 2-7 mm clean-based ulcers in the antrum 7. Duodenitis in the bulb and descending duodenum 8. Multiple (10) 2-9 mm clean-based ulcers in the bulb and descending duodenum RECOMMENDATIONS: 1. await biopsy results 2. acid suppression therapy 3. Propanolol, with goal SBP <=110 REPEAT EXAM: Return in 3 week(s) Denilson Sarabia Dr eSigned: Denilson Sarabia Dr 03/22/2021 12:19 PM Revised: 03/22/2021 12:19 PM cc: CPT CODES: ICD9 CODES: PATIENT NAME: Caleb Roberts MR#: [id number]
--- NOTE | 2021-03-22 12:37 | CON ---
Date of Consultation: 03/21/2021 Reason For Consultation: Cirrhosis of liver with anasarca. History Of Present Illness: The patient is a 50-year-old male without significant past medi narcisa history. The patient presented to hospital with anasarca and diagnosis of cirrhosis of the liver . The patient denies any prior history. He came to the hospital because of scrotal swelling. In th e emergency room, it was noted his eyes were jaundiced as well and looks like his legs are erythemato us, but warm to touch and possible cellulitis. Further workup revealed hemoglobin of 7.1, MCV of 71, total bilirubin of 2.2, direct bilirubin of 1.5, albumin of 2.4. Platelet count a little low, curre ntly at 115, on admission was 143. INR was at 1.47, so the patient has signs of cirrhosis of the ladonna er. Past Medical History: The patient denies any significant past medical history. He presents with scr otal swelling. Medications: At home none. Allergies: NKDA. Social History: Single. No kids. Never . He says he drinks about a bottle of Tequila a day . Drinks about a quarter pack of cigarettes per day. Family History: Father and mother are alive and well. Review of Systems: The patient has scrotal swelling, warm and erythematous lower extremities, jaundiced. He denies any melena, hematochezia, hematemesis, coffee-grounds emesis, hematuria, dysuria, polydipsia, chest pain, shortness of breath, seizure, syncope. He has lower extremity edema, but no muscle aches , joint aches, backaches. No depression or anxiety. Physical Examination: Vital Signs: He is 5 feet 10 inches, 190 pounds, BMI of 27.3 kg/m2. Temperature 99.4 degrees Fahren heit, pulse 97, respirations 17, blood pressure 136/68, O2 saturation 100%. General: The patient is a bit slightly jaundiced. The patient is lying in bed, in no acute distress . HEENT: Normocephalic, atraumatic. Icteric sclera and conjunctiva. Oropharynx is clear. Neck: Supple. No masses. Respirations: Clear to auscultation bilaterally. Cardiac: Regular rate and rhythm. Gastrointestinal: Positive bowel sounds. Soft. Mild distention. Mild dullness in the flanks. No peritoneal or Gutierrez signs. No rebound. Extremities: 2 to 3+ edema in the lower extremities as well as some in the thighs and lower abdomina l wall. Neuro: Alert and oriented x3. Grossly nonfocal. 5/5 motor. Sensation intact to light touch. Some what decreased in touch sensation due to edema in the lower extremities and abdominal wall. Laboratory Data: The patient has a hemoglobin down to 5.9 today. He received packed RBCs units of packed RBCs 7.2, hematocrit 20, MCV of 71.1, white cell count of 5.1, MCV of 71. 1, platelet count of 115, polys 62%, lymphocytes 25%, monocytes 7%, eosinophils 2%. The patient has a PT of 17.0, INR of 1.47. Sodium 140, potassium 3.1, chloride 110, bicarb 25, BUN of 5, creatinine of 0.6, glucose 106, calcium 7.5, phosphorus 1.8, magnesium 1.6. Iron saturation is 17.9%, ferritin of 11.4, total bilirubin 3.2 to 2.7, AST of 44, ALT 20, alkaline phosphatase 230, total protein 6.6, albumin 2.0. Triglycerides 110, cholesterol 80, LDL 36, HDL 23, TSH of 2.44, free T4 of 1.28. Negat louis protein, negative UA. Toxicology, alcohol less than 10. pending. Serology; influenz a A and B negative. COVID-19 negative. Hepatitis A, B, and C are pending. CT abdomen and pelvis re vealed cirrhotic liver, splenomegaly, and trace ascites, body wall edema specifically in lower abdome n and pelvis extending to the scrotum. Impression: 1.Cirrhosis of the liver secondary to alcohol, splenomegaly, trace ascites and edema in the body wal l to the scrotum with albumin of approximately [address] scan and platelets low at 115. 2.Anasarca secondary to cirrhosis of liver secondary to alcohol, BNP of 189, albumin 2.4. 3.Jaundice. Total bilirubin 3.2 down to 2.7. The patient had a total bilirubin of 2.2 earlier on a dmission with a total direct bilirubin of 1.5, AST of 44, ALT of 20, alkaline phosphatase 230. Negat [place] of alcohol consumption. 4.Iron deficiency anemia with a hemoglobin of 5.9, MCV of 71, ferritin of a low 11.4, iron saturatio n low at 17.9, . 5.Cellulitis of the lower extremities erythema and warmth, on IV antibiotics. 6.Thrombocytopenia secondary to cirrhosis with platelets of 115, coagulopathy with INR of 1.47 secon rex to cirrhosis. Recommendations: 1.Continue Lasix and Aldactone. 2.Continue IV antibiotics. 3.Await for hepatitis panel. 4.Hepatitis A and B vaccinations. 5.EGD. 6.Alcohol cessation and alcoholics anonymous or rehab on discharge, DT precautions, p.r.n. benzodiaz epine, thiamine and folate therapy. WS/MODL Voice ID: [id number] Report ID: [id number]
[2021-03-22] MEDS ORDERED: NA CHLORIDE 0.9% 250 ML ONE (14:07)
--- NOTE | 2021-03-22 14:54 | ECHO ---
HEIGHT: 5 ft 10 in WEIGHT: 190 lb 0 oz DATE OF STUDY: 03/22/[address]: Slava Montes 2-DIMENSIONAL: YES M.MODE: YES DOPPLER: YES COLOR FLOW: YES TDS: PORTABLE: DEFINITY: BUBBLE STUDY: DIAGNOSIS: VOLUME OVERLOAD CARDIAC HISTORY: CATHERIZATION: NO SURGERY: NO PROSTHETIC VALVE: NO PACEMAKER: NO MEASUREMENTS (cm) DIASTOLIC (NORMALS) SYSTOLIC (NORMALS) IVSd 0.9 (0.6-1.2) LA Diam 3.7 (1.9-4.0) LVEF 59% LVIDd 4.8 (3.5-5.7) LVIDs 3.3 (2.0-3.5) %FS 31% LVPWd 1.0 (0.6-1.2) Ao Diam 2.8 (2.0-3.7) 2 DIMENSIONAL ASSESSMENT: RIGHT ATRIUM: NORMAL LEFT ATRIUM: NORMAL RIGHT VENTRICLE: NORMAL LEFT VENTRICLE: NORMAL TRICUSPID VALVE: MILD TRICUSPID REGURGITATION MITRAL VALVE: MILD MITRAL REGURGITATION PULMONIC VALVE: NORMAL AORTIC VALVE: NORMAL PERICARDIAL EFFUSION: NONE AORTIC ROOT: NORMAL LEFT VENTRICULAR WALL MOTION: NORMAL DOPPLER/COLOR FLOW: SEE BELOW COMMENTS: NORMAL LEFT VENTRICULAR EJECTION FRACTION 55-60%. NORMAL WALL MOTION. MILD MITRAL REGURGITATION. MILD TRICUSPID REGURGITATION. TECHNOLOGIST: ALFONSO WALTER
[2021-03-22 16:45] LABS: Magnesium 1.4
--- NOTE | 2021-03-22 19:28 | P.PN ---
Date of Service: 03/23/21 Subjective: ROS: as noted above, otherwise 10 point ROS negative Physical Exam: Gen: HEENT: CV: Pulm: Abd: MSK: Skin: Neuro: : Problem List: Anasarca secondary to alcoholic cirrhosis of liver Esophagitis, gastritis, duodenitis with ulcers secondary to liver cirrhosis / portal hypertension acute on chronic anemia, iron deficiency and blood loss Thrombocytopenia secondary to liver cirrhosis Cellulitis s/p 1u PRBC x2. Hgb >7 GI consulted - s/p EGD on 03/22 - multiple ulcers / inflammation hepatitis panel sent anasarca improving with lasix/aldactone, will need to continue on discharge ?cellulitis, on cipro. low-grade temps. 100.5 Tmax on admission. blood/urine cultures remain negative. SBP unlikely. no evidence of alcohol withdrawal Code: Full Dispo: dc home in 1-2 days.
[2021-03-22] MEDS: FUROSEMIDE 40 MG/4 ML VIAL IV SCH (20:25)
[2021-03-22] MEDS ORDERED: Magnesium Sulfate 2gm IVPB 2 G/50 ML BAG IV ONE (21:00)
[2021-03-22 22:42] LABS: Hematocrit 26.8 % (39.6-49.0)
[2021-03-23] MEDS ORDERED: SODIUM CHLORIDE 0.9% 10ML INJ IV PRN (05:29)
[2021-03-23 05:30] LABS: Absolute Lymphocytes (CBC) 0.9 K/uL (0.7-4.9); Hematocrit 25.7 % (39.6-49.0); Lymphocytes % 18.4 % (15.3-44.8); MPV 8.1 fL (7.6-11.3); RBC Red Blood Cell Count 3.49 M/uL (4.33-5.43)
[2021-03-23 05:51] LABS: ALT/SGPT 20 U/L (12-78); AST/SGOT 50 U/L (15-37); Albumin 2.1 g/dL (3.4-5.0); Alkaline Phosphatase 208 U/L (45-117); BUN Blood Urea Nitrogen 6 mg/dL (7-18); Bicarbonate 22 mmol/L (21-32); Bilirubin Direct 1.9 mg/dL (0-0.2); Bilirubin Total 3.7 mg/dL (0.2-1.0); Glucose Level 91 mg/dL (74-106); Phosphorus 2.7 mg/dL (2.5-4.9); Potassium 3.7 mmol/L (3.5-5.1); Protein, Total 7.1 g/dL (6.4-8.2); Sodium Level 136 mmol/L (136-145)
[2021-03-23] MEDS ORDERED: PROPRANOLOL HCL 10 MG TAB PO SCH (09:00)
[2021-03-23] MEDS: SPIRONOLACTONE 100 MG TAB PO SCH (09:00)
[2021-03-23] MEDS ORDERED: PANTOPRAZOLE 40 MG INJ IVP SCH (09:00)
[2021-03-23] MEDS: CIPROFLOXACIN 400mg IV 400 MG/200 ML BAG IV SCH (09:00)
[2021-03-23] MEDS: FUROSEMIDE 40 MG/4 ML VIAL IV SCH (09:00)
[2021-03-23] MEDS ORDERED: POTASSIUM CL SA 10 MEQ TAB PO ONE (09:00)
[2021-03-23 11:24] VITALS: BP 125/71; TEMP 98.8; O2SAT 98
[2021-03-23 13:13] LABS: Magnesium 1.5
--- NOTE | 2021-03-23 18:07 | P.DS ---
Admission Date: 03/20/21 Discharge Date: 03/23/21 Disposition: AMA-LEFT AGAINST MEDICAL ADVIC Reason for Admission: anasarca, liver cirrhosis Consultations: GIDr. Sarabia Procedures: EGD Problem List: Anasarca secondary to alcoholic cirrhosis of liver Esophagitis, gastritis, duodenitis with ulcers secondary to liver cirrhosis / portal hypertension acute on chronic anemia, iron deficiency and blood loss Thrombocytopenia secondary to liver cirrhosis Cellulitis Brief History of Present Illness: 50 yo M with no known past medical history who presents with one week of scrotal swelling. ER physician notified the patient that his legs are also quite swollen, and he says that they have been increasing in size since December. His legs are erythematous and also warm to the touch. Patient is visibly jaundiced. He reports decreased appetite. Denies fever, nausea, vomiting, abdominal pain, shortness of breath, hematemesis, hematochezia and melena. He says he drinks half a bottle of tequila weekly. He smokes 5-6 cigarettes daily. He denies IV drug use and previous diagnosis of hepatitis. Hospital Course: Patient was diuresed chemistry was consulted, patient underwent EGD which revealed multiple gastric and duodenal ulcers/inflammation. Patient had improvement of his symptoms, but still required to remain inpatient. Patient's family showed up to the hospital early this morning, and patient left AMA during my senior data developer rounds. Patient says family was from out of town and were planning to take him directly to the hospital near where they lived. They did not want him in the hospital far away from them. Explained and his disease process, his ongoing anemia, and the risk of . He expressed understanding, and reiterated that he plans to go straight to the hospital. Patient signed the paperwork for leaving AGAINST MEDICAL ADVICE. He deferred my physical exam this morning. I asked charge nurse to provide current medical records/imaging for the patient to take. Vital Signs/Physical Exam: Patient deferred Temp Pulse Resp BP Pulse Ox 98.8 F 85 20 125/71 98 03/23/21 08:00 03/23/21 08:00 03/23/21 08:00 03/23/21 08:00 03/23/21 08:00 Laboratory Data at Discharge: WBC 4.80 K/uL (4.3-10.9) D 03/23/21 05:05 Hgb 7.9 g/dL (13.6-17.9) L 03/23/21 05:05 Hct 25.7 % (39.6-49.0) L 03/23/21 05:05 Plt Count 111 K/uL (152-406) L 03/23/21 05:05 PT 17.0 SECONDS (9.5-12.5) H 03/19/21 20:40 INR 1.47 03/19/21 20:40 Sodium 136 mmol/L (136-145) 03/23/21 05:05 Potassium 3.7 mmol/L (3.5-5.1) 03/23/21 05:05 BUN 6 mg/dL (7-18) L 03/23/21 05:05 Creatinine 0.66 mg/dL (0.55-1.3) 03/23/21 05:05 Glucose 91 mg/dL (74-106) 03/23/21 05:05 Phosphorus 2.7 mg/dL (2.5-4.9) 03/23/21 05:05 Magnesium 1.5 03/23/21 05:05 Total Bilirubin 3.7 mg/dL (0.2-1.0) H 03/23/21 05:05 AST 50 U/L (15-37) H 03/23/21 05:05 ALT 20 U/L (12-78) 03/23/21 05:05 Alkaline Phosphatase 208 U/L (45-117) H 03/23/21 05:05 Triglycerides 110 mg/dL (<150) 03/21/21 04:11 Cholesterol 80 mg/dL (<200) 03/21/21 04:11 HDL Cholesterol 22 mg/dL (40-60) L 03/21/21 04:11 Cholesterol/HDL Ratio 3.64 03/21/21 04:11 Home Medications: NK [No Home Meds] 03/20/21 Followup: NONE,NONE [Primary Care Provider] - Time spent managing pt's care (in minutes): 45
== END 2021-03-23 10:13 | disposition left against medical advice (07) | DRG 433 ==
LOC: ER 16:53 → ERHOLD 03-20 01:38 → 2ND 03-20 21:28
PROVIDERS: ADMIT Internal Medicine; ATTEND Hospitalist
PROC: 30233N1 Transfusion of Nonautologous Red Blood Cells into Peripheral Vein, Percutaneous Approach (ICD-10-PCS; 2021-03-20)
PROC: 06L38CZ Occlusion of Esophageal Vein with Extraluminal Device, Via Natural or Artificial Opening Endoscopic (ICD-10-PCS; principal; 2021-03-22 10:00)
DX: K70.31 Alcoholic cirrhosis of liver with ascites (principal); I85.10 Secondary esophageal varices without bleeding; K76.6 Portal hypertension; L03.116 Cellulitis of left lower limb; L03.115 Cellulitis of right lower limb; K20.90 Esophagitis, unspecified without bleeding; K22.70 Barrett's esophagus without dysplasia; K31.89 Other diseases of stomach and duodenum; K29.70 Gastritis, unspecified, without bleeding; K25.9 Gastric ulcer, unspecified as acute or chronic, without hemorrhage or perforation; K29.80 Duodenitis without bleeding; F17.210 Nicotine dependence, cigarettes, uncomplicated; D50.9 Iron deficiency anemia, unspecified; D69.6 Thrombocytopenia, unspecified; E88.09 Other disorders of plasma-protein metabolism, not elsewhere classified; I87.2 Venous insufficiency (chronic) (peripheral); E83.42 Hypomagnesemia; N50.89 Other specified disorders of the male genital organs; R16.1 Splenomegaly, not elsewhere classified; Z53.29 Procedure and treatment not carried out because of patient's decision for other reasons; Z20.822 Contact with and (suspected) exposure to COVID-19
CPT/HCPCS: 0240U; 36415; 36430; 71045; 74177; 76870; 80048; 80053; 80061; 80074; 80076; 80320; 81003; 82105; 82140; 82550; 82728; 83540; 83605; 83735; 83880; 84100; 84132; 84145; 84439; 84443; 84466; 84484; 85014; 85018; 85025; 85610; 86850; 86900; 86901; 87040; 87086; 87088; 87205; 87520; 87522; 88305; 88312; 93005; 93306; 93970; 96361; 96365; 99285; C9113; J0360; J0744; J1940; J2704; J3475; J7040; J7050; J7120; P9016; Q9967